=== PATIENT | male | born 1970 | race Two or more races ===

== ENCOUNTER 2024-03-07 00:32 | Emergency (ER) | payer MEDICAID, SELFPAY ==
[2024-03-07 00:33] VITALS: BMI 34.4
[2024-03-07 00:59] VITALS: BP 199/96; BP 208/92; PULSE 72; RESP 19; TEMP 36.1; O2SAT 97
--- NOTE | 2024-03-07 01:01 | EKG_ITS ---
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
--- NOTE | 2024-03-07 01:21 | XR_ITS ---
Examination: CT brain head without contrast. 2-D sagittal coronal reconstructions Date and time of exam:March 07, 2024 0134 hours INDICATIONS: Onset headaches and weakness today CTDI: vol (mGy):53.60 DLP: (mGycm):1120 Technique: Multiple CT axial sections of the brain have been obtained, 5 mm slice thickness. Contrast has not been administered. 2-D sagittal, coronal reconstructions have been obtained Low dose protocols were performed. One or more of the following dose reduction techniques were used; automated exposure control, adjustment of the mA and/or KV according to patient size, use of iterative reconstruction technique. Findings: No significant ventricular enlargement. Intra-axial or extra-axial hemorrhage density is not seen. No mass effect or midline shift Basal cisterns are not remarkable. Fourth ventricle is midline. Cranial vault intact. Impression: Negative for acute hemorrhage, mass effect or midline shift Advise clinical correlation follow up accordingly
--- NOTE | 2024-03-07 01:21 | XR_ITS ---
Examination: PA chest single view TECHNIQUE: Upright PA chest single view Standing time: March 07, 2024 at 0126 hours INDICATIONS: Coughing beginning 2 weeks ago FINDINGS: Normal heart size No lobar pneumonia or pulmonary edema. The osseous structures are intact IMPRESSION: No lobar pneumonia
--- NOTE | 2024-03-07 01:22 | PD.EDRME ---
Rapid Medical Screening Exam [facility] Arrival date/time: 03/07/24 00:32 53M with history of HTN (stopped taking meds 3 months ago) and pre-DM presents to ED with 1.5 hours of generalized weakness, sweating, mild MENEZES and not feeling good. Patient also notes he's been coughing for about 2 weeks, but feels like it is getting better. Chief Complaint: General Adult/Misc Complain Vital signs: Vital Signs Temperature 97 F 03/07/24 00:59 Pulse Rate 72 03/07/24 00:59 Respiratory Rate 19 03/07/24 00:59 Blood Pressure 208/92 H 03/07/24 00:59 Pulse Oximetry (%) 97 03/07/24 00:59 Oxygen Delivery Method Room Air 03/07/24 00:59
[2024-03-07 02:02] LABS: Collection Type, Urine Clean Catch; Squamous Epithelial Cell,Urine 0 /hpf (0-5)
[2024-03-07 02:11] LABS: Basophils % (Auto) 1 % (0-2.5); Eosinophils # (Auto) 0.1 Thou/mm3 (0.0-0.5); Eosinophils % (Auto) 2 % (0-10); Hematocrit 43.4 % (41.0-53.0); Hemoglobin 14.9 g/dL (13.5-16.0); Immature Granulocytes % (Auto) 0 % (0-0); Immature Granulocytes Auto 0.01 Thou/mm3 (0.00-0.00); Lymphocytes # (Auto) 1.9 Thou/mm3 (1.0-4.8); Lymphocytes % (Auto) 37 % (10-50); Mean Corpuscular HGB Conc 34.3 g/dl (31.0-37.0); Mean Corpuscular Hemoglobin 30.7 pg (25.0-35.0); Mean Corpuscular Volume 90 fL (80-100); Monocytes # (Auto) 0.7 Thou/mm3 (0.0-0.8); Monocytes % (Auto) 13 % (0-12); Neutrophils # (Auto) 2.4 Thou/mm3 (1.8-7.7); Neutrophils % (Auto) 47 % (37-80); Nucleated Red Blood Cell % 0 /100 WBC (0); Platelet Count 143 Thou/mm3 (140-440); RDW Standard Deviation 38.8 fL (35.1-43.9); Red Blood Count 4.85 Miln/mm3 (4.50-5.90); White Blood Count 5.1 Thou/mm3 (3.8-10.6)
--- NOTE | 2024-03-07 02:12 | EDNOTE_ITS ---
ED General RME/HPI General Chief complaint: General Adult/Misc Complain Stated complaint: I DON'T FEEL GOOD ; WEAK Time Seen by Provider: 03/07/24 01:39 Arrival date/time: 03/07/24 00:32 RME / HPI RME / HPI narrative: 03/07/24 00:32 53M with history of HTN (stopped taking meds 3 months ago) and pre-DM presents to ED with 1.5 hours of generalized weakness, sweating, mild MENEZES and not feeling good. Patient also notes he's been coughing for about 2 weeks, but feels like it is getting better. ------ Dr. Ladd?s Main ED Evaluation: 53yo male with a history of HTN, HLD presents to the ED for a chief complaint of generalized weakness. Patient states he feels generally bad , reporting he feels weak, has a dry mouth, and a posterior headache. He reports associated sweating. He states he's had these symptoms frequently for the last 1 month. Patient states he has not taken his medications in 3 months, reporting he never went back to his PCP for refills. He denies any N/V, fever, chills or any other associated symptoms. No known allergies. Related Data Allergies Allergy/AdvReac Type Severity Reaction Status Date / Time No Known Allergies Allergy Verified 03/07/24 00:36 Review of Systems Review of Systems Systems Reviewed: All systems reviewed, normal except as documented Narrative Review of Systems: Gen: No fever, no chills, no weight loss, + sweating EYES: No discharge, no visual changes, no pain HEENT: No ear pain, no congestion, no sore throat PULM: No shortness of breath, no cough, no congestion CV: No chest pain, no dyspnea on exertion, no palpitations GI: No nausea, no vomiting, no diarrhea, no pain, no constipation : No frequency, no urgency, no dysuria Musc/skel: No joint pain, no back pain Skin: No rash. Warm and dry. Psyc: No hallucinations, no depression Heme/Lymph: No easy bleeding or bruising tendencies Neuro: + weakness, + headache ED Exam Narrative Physical exam: GENERAL APPEARANCE: alert and oriented x 4, well-developed, well-nourished, no acute distress VITALS: All vitals were reviewed and the pulse ox is 97% on room air, which is normal according to my interpretation. HEENT: Normocephalic, atraumatic; pupils equal, round, reactive to light; EOMI; mucous membranes pink, moist; oropharynx clear NECK: Supple LUNGS: CTABL; no wheezes, no rales, no rhonchi HEART: Regular rate, regular rhythm; normal S1, S2; no murmurs ABDOMEN: non distended; normal BS; soft, no tenderness, no guarding, no rebound; no masses, no organomegaly, no hernia BACK: no CVA tenderness EXTREMITIES: atraumatic; no edema NEUROLOGIC: awake; alert and oriented x4; cranial nerves II-XII grossly intact; no focal sensory or motor deficits PSYCHIATRIC: appropriate mood and affect SKIN: warm, dry, normal color; no rashes Course Quality Measures none Orders Category Date Time Status Blood glucose [Bedside Blood Glucose] NOW Care 03/07/24 01:01 Active EKG (ED ONLY) *Do not use* NOW Care 03/07/24 01:[address] head/brain wo con Stat Exams 03/07/24 01:21 Taken EKG (ED Only) Stat Exams 03/07/24 01:01 Draft EKG (ED Only) Stat Exams 03/07/24 01:02 Ordered XR chest 1V portable Stat Exams 03/07/24 01:21 Taken CBC Stat Lab 03/07/24 01:55 Completed Comprehensive Metabolic Panel Stat Lab 03/07/24 01:55 Completed Drug Screen,Urine Stat Lab 03/07/24 01:44 Received Troponin I Stat Lab 03/07/24 01:55 Completed Urinalysis Stat Lab 03/07/24 01:44 Completed Vital Signs Vital signs: Vital Signs Temperature 97 F 03/07/24 00:59 Pulse Rate 72 03/07/24 00:59 Respiratory Rate 19 03/07/24 00:59 Blood Pressure 208/92 H 03/07/24 00:59 Pulse Oximetry (%) 97 03/07/24 00:59 Oxygen Delivery Method Room Air 03/07/24 00:59 [facility] Patient data External records reviewed:: [facility] previous records (Per chart review, patient has no previous ED visits or admissions to this facility.) Clinical information provided by:: patient Social determinants that could affect healthcare access:: none Patient has the following chronic illnesses:: HTN, HLD How is presenting disease/condition affected by chronic disease/condition?: c aused by Evaluation data The following diagnostics were reviewed and interpreted by me:: lab results, radiology exam(s) and EKG tracing(s) Lab and/or radiology exams considered but not ordered:: none Interpretation Summary: CBC is normal, CMP is normal, troponin is normal, UA is unremarkable, according to my interpretation. CXR shows normal cardiac silhouette, normal sharp diaphragmatic edge, no infiltrates, normal costophrenic angles, according to my interpretation. EKG done at 0110, NSR, rate of 69, normal axis, no ectopy, no acute ischemia, according to my interpretation. ------ [facility] Preliminary Report Draft Patient: CITLALLI WHYTE. Record#: [id number] Birthdate: 1970 Age/Sex: 53 / M Location: [facility] Attending Dr: Ordering Physician: Date of Service: Procedure(s): Accession Number(s): cc: ~ CT scan of the head without intravenous contrast (axial sections with sagittal and coronal reformats) March 07, 2024 0134 hours Clinical History: MENEZES and weakness Comparison: None. Findings: There is no evidence of intracranial hemorrhage, mass effect or midline shift. There is mild volume loss. The calvarium is unremarkable. The mastoid air cells and the visualized paranasal sinuses are clear. Impression: No evidence of intracranial hemorrhage, mass effect or midline shift. Mild volume loss. Aspect score 10. Report Electronically Signed By: Brandon Green 03/07/2024 2:40:53 AM [EST] Medications Medications considered but not ordered:: none Medication administrations:: see above, if any Consultations Consultation(s) initiated? (list below): No Diagnosis Differential Diagnosis ED Complaint MDM: hypertensive headache, ICH, subarachnoid hemorrhage, headache Most likely diagnosis given after review of the tests above:: see below Admission Indicated Admission indicated?: not indicated Explain why admission is indicated or not indicated:: Admission criteria not met. Patient is stable to be discharged. Admission Request Was there a request for admission?: No Disposition Plan Disposition Plan: Discharge Discharge Attestation Discharge Attestation: The patient and all family members were given an opportunity to ask questions and understood the discharge instructions. Discharge instructions specifically effects, indications for sooner follow up or return to the emergency department, and the expected course of current diagnosis. Patient condition: Stable Medical Decision Making MDM Narrative MDM Narrative: Scribe Attestation: 03/07/24 - Radha Duran am scribing for and in the presence of Dr. Ladd. Differential Diagnosis Differential Diagnosis: hypertensive headache, ICH, subarachnoid hemorrhage, headache Lab Data 03/07/24 01:55 03/07/24 01:55 Labs: Lab Results 03/07/24 03/07/24 Range/Units 01:44 01:55 WBC 5.1 (3.8-10.6) Thou/mm3 RBC 4.85 (4.50-5.90) Miln/mm3 Hgb 14.9 (13.5-16.0) g/dL Hct 43.4 (41.0-53.0) % MCV 90 (80-100) fL MCH 30.7 (25.0-35.0) pg MCHC 34.3 (31.0-37.0) g/dl RDW Std Deviation 38.8 (35.1-43.9) fL Plt Count 143 (140-440) Thou/mm3 Neut % (Auto) 47 (37-80) % Lymph % (Auto) 37 (10-50) % [place] % (Auto) 13 H (0-12) % Eos % (Auto) 2 (0-10) % Baso % (Auto) 1 (0-2.5) % Neut # (Auto) 2.4 (1.8-7.7) Thou/mm3 Lymph # (Auto) 1.9 (1.0-4.8) Thou/mm3 [place] # (Auto) 0.7 (0.0-0.8) Thou/mm3 Eos # (Auto) 0.1 (0.0-0.5) Thou/mm3 Baso # (Auto) 0.0 (0.0-0.2) Thou/mm3 Immature Gran # (Auto) 0.01 H (0.00-0.00) Thou/mm3 Absolute Nucleated RBC 0.00 (0.00-0.00) Thou/mm3 Immature Gran % 0 (0-0) % Nucleated RBC % 0 (0) /100 WBC Sodium 136 (136-145) mMol/L Potassium 4.2 (3.4-5.1) mMol/L Chloride 101 (98-107) mMol/L Carbon Dioxide 26.6 (20.0-31.0) mMol/L Anion Gap 8 (7-16) BUN 10 (9-23) mg/dL Creatinine 0.8 (0.6-1.3) mg/dL Estim Creat Clear Calc 118.8 (>60) mL/min eGFR > 60 (60 - ) See Note BUN/Creatinine Ratio 13 (12-20) Ratio Glucose 121 H (74-106) mg/dL Calculated Osmolality 271 L (275-295) Calcium 9.7 (8.3-10.6) mg/dL Corrected Calcium 9.7 (8.5-10.1) mg/dL Total Bilirubin 0.3 (0.3-1.2) mg/dL AST 52 H (0-34) U/L ALT 77 H (10-49) U/L Alkaline Phosphatase 86 (46-116) U/L Troponin I < 0.020 (0.0-0.045) ng/mL Total Protein 8.0 (5.7-8.2) gm/dL Albumin 4.6 (3.5-5.0) gm/dL Globulin 3.4 (2.3-3.5) gm/dL Albumin/Globulin Ratio 1.4 (1.2-2.2) Ur Collection Type Clean Catch Urine Color Yellow (Lt Yel-Yel) Urine Clarity Clear (Clear/Hazy) Urine pH 6.5 (5.0-7.0) Ur Specific [place] 1.024 (1.001-1.035) Urine Protein Negative (Neg - Trace) Urine Glucose (UA) Negative (Negative) Urine Ketones Negative (Negative) Urine Blood Negative (Negative) Urine Nitrite Negative (Negative) Urine Bilirubin Negative (Negative) Urine Urobilinogen (Auto) 3.0 (0.0-1.0) mg/dL Ur Leukocyte Esterase Negative (Negative) Urine RBC 2 (0-3) /hpf Urine WBC < 1 (0-5) /hpf Ur Squamous Epith Cells 0 (0-5) /hpf Urine Bacteria None (None) Discharge Plan Plan Patient Disposition: HOME (Self Care) Disposition Comment: Stable for discharge Patient condition on transfer: Stable Prescriptions/Referrals Referrals: [facility] [Outside] - In 1 week Problem List Clinical Impression: Benign essential hypertension, Headache due to hypertension Patient/Caregiver Discharge Instructions Discharge Activity: activity as tolerated Education Materials: Self-Care for Headaches, What Is High Blood Pressure?, ED Hypertension, Established Additional Instructions: You should return to the ER for any worsening or any further medical problems Otherwise you should follow-up with your primary care doctor or in the family health care clinic within the next several days. It is very important that you speak to them about refilling your high blood pressure and your high cholesterol medicines. Print Language: Latvian Stand Alone Forms: [employer] Award Info., Patient Portal Info Letter
[2024-03-07 02:14] LABS: Bilirubin,Urine Negative (Negative); Blood,Urine Negative (Negative); Clarity,Urine Clear (Clear/Hazy); Color,Urine Yellow (Lt Yel-Yel); Glucose, Urine Negative (Negative); Ketones,Urine Negative (Negative); Leukocyte Esterase,Urine Negative (Negative); Nitrite,Urine Negative (Negative); PH,Urine 6.5 (5.0-7.0); Protein,Urine Negative (Neg - Trace); RBC,Urine 2 /hpf (0-3); Specific Gravity,Urine 1.024 (1.001-1.035); WBC,Urine < 1 /hpf (0-5)
[2024-03-07 02:25] VITALS: BP 210/88; BP 217/94; PULSE 69; RESP 18; O2SAT 98
[2024-03-07 02:35] LABS: Alanine Aminotransferase 77 U/L (10-49); Albumin, Serum 4.6 gm/dL (3.5-5.0); Albumin/Globulin Ratio 1.4 (1.2-2.2); Alkaline Phosphatase 86 U/L (46-116); Anion Gap 8 (7-16); Aspartate Amino Transferase 52 U/L (0-34); BUN/Creatinine Ratio 13 Ratio (12-20); Bilirubin,Total 0.3 mg/dL (0.3-1.2); Blood Urea Nitrogen 10 mg/dL (9-23); Calcium 9.7 mg/dL (8.3-10.6); Calcium (Corrected) 9.7 mg/dL (8.5-10.1); Carbon Dioxide 26.6 mMol/L (20.0-31.0); Chloride 101 mMol/L (98-107); Creatinine (Component) 0.8 mg/dL (0.6-1.3); Estimated Creatinine Clearance 118.8 mL/min (>60); Globulin 3.4 gm/dL (2.3-3.5); Glucose 121 mg/dL (74-106); Osmolality,Calculated 271 (275-295); Potassium 4.2 mMol/L (3.4-5.1); Sodium 136 mMol/L (136-145); Troponin I < 0.020 ng/mL (0.0-0.045); eGFR > 60 See Note
--- NOTE | 2024-03-07 02:42 | PRELIM_ITS ---
CT scan of the head without intravenous contrast (axial sections with sagittal and coronal reformats) March 07, 2024 0134 hours Clinical History: MENEZES and weakness Comparison: None. Findings: There is no evidence of intracranial hemorrhage, mass effect or midline shift. There is mild volume loss. The calvarium is unremarkable. The mastoid air cells and the visualized paranasal sinuses are clear. Impression: No evidence of intracranial hemorrhage, mass effect or midline shift. Mild volume loss. Aspect score 10. Report Electronically Signed By: Brandon Green 03/07/2024 2:40:53 AM [EST]
[2024-03-07 03:26] VITALS: BP 200/88; PULSE 69; RESP 18; O2SAT 98
[2024-03-07 03:31] LABS: Amphetamine/Methamp Scrn,U Negative (Negative); Barbiturate Screen,Urine Negative (Negative); Benzodiazepines Screen,Urine Negative (Negative); Benzoylecgonine Screen, Ur Negative (Negative); Fentanyl Screen,Urine Negative (Negative); Opiate Screen,Urine Negative (Negative); THC Screen,Urine Negative (Negative)
== END 2024-03-07 03:35 | disposition home or self-care (01) ==
PROVIDERS: Physician Assistant; Emergency Provider Emergency Medicine; PCP Registered Nurse Community Health
DX: I10 Essential (primary) hypertension (principal); R94.31 Abnormal electrocardiogram [ECG] [EKG]; R05.9 Cough, unspecified; R51.9 Headache, unspecified; R53.1 Weakness
CPT/HCPCS: 36415; 70450; 71045; 80053; 80307; 81001; 84484; 85025; 93005; 99283